=== PATIENT | female | born 1960 | race Two or more races ===

== ENCOUNTER → 2018-10-23 | Emergency (ER) | payer OTHER ==
[~2018-10-23] VITALS: Ht 167.6 cm; Wt 99.8 kg
[~2018-10-23] MED LIST: COZAAR100 MG; TOPROL XL50 MG
== END | disposition left against medical advice (07) ==
LOC: ER 21:31
DX: Z53.20 Procedure and treatment not carried out because of patient's decision for unspecified reasons (principal)